=== PATIENT | male | born 1955 | race Caucasian/White ===

== ENCOUNTER 2016-10-28 07:51 | Inpatient (IN) | payer BC ==
[2016-10-28] MEDS ORDERED: Ticagrelor* 90 MG TAB PO ONE (07:54)
[2016-10-28] MEDS ORDERED: Heparin for STEMI(*) 5,000 UNITS/ML 1 ML VIAL IV ONE (07:54)
[2016-10-28] MEDS ORDERED: Iohexol 350 (CONTRAST) 200 ML MDV IV ONE ×2 (07:56→08:25)
[2016-10-28] MEDS ORDERED: Midazolam* 1 MG/ML 5 ML VIAL (5 MG) ONE (07:56)
[2016-10-28] MEDS ORDERED: Heparin 2 UNITS/ML IVPREMIX* 3,000 ML IV ONE (07:56)
[2016-10-28] MEDS ORDERED: fentaNYL* 50 MCG/ML 2 ML VIAL (100 MCG VIAL) ONE (07:56)
[2016-10-28] MEDS ORDERED: Lidocaine 1% INJ* 10 MG/ML 30 ML SDV ONE (07:57)
[2016-10-28] MEDS ORDERED: nitroGLYCERIN DRIP* 0 ML ONE (07:57)
[2016-10-28] MEDS ORDERED: Bivalirudin(*) 250 MG VIAL ONE (08:37)
[2016-10-28] MEDS ORDERED: fentaNYL* 50 MCG/ML 2 ML VIAL (100 MCG VIAL) IV PRN (09:13)
[2016-10-28] MEDS ORDERED: Ondansetron INJ* 2 MG/ML VIAL IV PRN (09:13)
[2016-10-28] MEDS ORDERED: Docusate CAP* 100 MG PO PRN (09:13)
[2016-10-28] MEDS ORDERED: Nitroglycerin TAB 0.4 MG* 0.4 MG TAB SL PRN (09:13)
[2016-10-28] MEDS ORDERED: oxyCODONE/Acetamin 5/325 MG* TAB PO PRN (09:13)
[2016-10-28] MEDS ORDERED: NS 0.9% 1000 ML* 1,000 ML IV SCH (09:15)
[2016-10-28 09:28] LABS: Hematocrit 45 % (42-52); Hemoglobin 15.1 g/dl (14.0-18.0); Mean Corpuscular HGB Conc 34 g/dl (31-36); Mean Corpuscular Hemoglobin 30 pg (27-31); Mean Corpuscular Volume 88 fL (80-94); Mean Platelet Volume 8 um3 (7.4-10.4); Red Blood Count 5.12 10^6/ul (4.0-5.4); Red Cell Distribution Width 14 % (10.5-15); White Blood Count 10.1 10^3/ul (3.5-10.8)
[2016-10-28 09:41] LABS: Albumin 4.1 g/dL (3.2-5.2); BUN/Creatinine Ratio 12.8 (8-20); Calcium 9.4 mg/dL (8.6-10.3); EGFR African American 87.9 (>60); EGFR Non-African American 68.3 (>60); Globulin 2.3 g/dL (2-4); Potassium 3.2 mmol/L (3.5-5.0); Total Bilirubin 0.7 mg/dL (0.2-1.0); Total Protein 6.4 g/dL (6.4-8.9)
[2016-10-28 09:44] LABS: Troponin I 0.01 ng/mL (<0.04)
[2016-10-28] MEDS ORDERED: Potassium Chlor TAB* 20 MEQ TAB.ER PO ONE (11:00)
[2016-10-28] MEDS: Acetaminophen TAB* 325 MG PO PRN (14:57)
[2016-10-28 15:05] LABS: Troponin I 30.09 ng/mL (<0.04)
[2016-10-28] MEDS ORDERED: Atorvastatin* 40 MG TAB PO SCH (17:00)
[2016-10-28] MEDS ORDERED: Ezetimibe TAB* 10 MG PO SCH (17:00)
[2016-10-28] MEDS: Ticagrelor* 90 MG TAB PO SCH ×2 (19:21→19:57)
--- NOTE | 2016-10-28 19:59 | HP ---
ADMISSION HISTORY AND PHYSICAL: DATE OF ADMISSION: 10/28/16 CHIEF COMPLAINT: Chest discomfort with arm heaviness and diaphoresis with ST elevation anterior wall myocardial infarction suggested on EKG with reciprocal changes. HISTORY OF PRESENT ILLNESS: The patient is a pleasant 61-year-old gentleman who was in his usual state of his health. He admits that over the past week or so, he has felt somewhat fatigued when he tried to do exertional activity and going upstairs at work did produce mild chest discomfort but not significant limiting activity. Today, he was down at the [employer] where he normally swims 3 times a week. He and his had gotten into a heated discussion with another swimmer in the pool over lu usage for swimming. Over the course of his continuing to share that lu with her, he became more and more upset watching her being harassed by the other woman. As such, he eventually felt poorly, got out of the pool and told his he just in general was not feeling well. He did try to take a shower, came out of the shower with progression of the symptoms of chest discomfort with bilateral arm heaviness and now diaphoresis. They summoned the EMS who came and on presentation, the patient had an EKG performed, which suggested the presence of an anterior wall myocardial infarction with reciprocal changes. A STEMI alert was called to [facility]. On arrival, he was met in the emergency room by myself and our label printer nurse to be able to see if we could do an ER bypass. His vital signs were stable by the EMS with the blood pressure in the 130s. He was still having significant active discomfort. I explained the risks and benefits about proceeding with issue of cardiac catheterization and he understood them and wished to go directly for cardiac catheterization. PAST MEDICAL HISTORY: Significant for the fact that he has had multiple interventions to his coronary arteries dating back as far as 1998. His last intervention; however, was more recent in [address] Leonardo Winchester (attempts were made to call Dr. Winchester prior to the procedure to get more details, but he did not answer his phone). The patient also has hyperlipidemia. CURRENT MEDICATIONS: Include: 1. Baby aspirin once a day. 2. Atorvastatin 40 mg a day. 3. Zetia 10 mg a day. 4. Ramipril 10 mg a day. 5. Metoprolol succinate 25 mg a day. 6. MultiVites. REVIEW OF SYSTEMS: Pertinent to proceeding with cardiac catheterization emergently include negative history of significant bleeding, no stroke or TIA. No history of renal dysfunction. PHYSICAL EXAMINATION GENERAL: Briefly, in the emergency room, the patient was alert, oriented. VITAL SIGNS: From the paramedics , BP was in the 130s/ systolic with the pulse in the 70s to 80s, respirations appeared to be 16 to 20. NECK: Supple. No increased JVP. LUNGS: Clear to A and P. HEART: Revealed no visible heaves, no palpable heaves or thrills. Normal S1, S2. I cannot appreciate a significant systolic or diastolic murmur. ABDOMEN: Soft, nontender. EXTREMITIES: Had femoral pulses present bilaterally. No significant bruits. Distal pulses were good. MUSCULOSKELETAL: Patient moves all extremities appropriately. DIAGNOSTIC STUDIES/LAB DATA: Review of EKG by paramedics revealed ST segment elevation in V2, subtly in V3 and also in V1 with reciprocal changes in 2, [address]. [address] segment elevation is seen in aVL and minimally in lead 1 with mild segment depression in V5 and V6. OVERALL ASSESSMENT: Mr. Negrete presents now in the throes of an acute ST segment elevation anterior wall myocardial infection. We have given him 4000 units of heparin in the emergency room on the EMS stretcher and 180 mg of Brilinta orally. He has already received aspirin therapy. Further management will be made pending results of cardiac catheterization. Aggressive continued risk factor management obviously is paramount in the postprocedure timeframe. We will notify Dr. Rodríguez Black of the patient's admission. CC: Rodríguez Black MD; Dr. Leonardo Winchester, Department of Cardiology in [place] * [id number]/[facility] #: [id number] MTDD
[2016-10-28 20:38] LABS: Troponin I 44.81 ng/mL (<0.04)
[2016-10-28] MEDS ORDERED: Zolpidem TAB* 5 MG PO PRN (21:00)
[2016-10-29] MEDS: Acetaminophen TAB* 325 MG PO PRN ×2 (00:09→09:46)
--- NOTE | 2016-10-29 01:16 | CATH ---
CARDIAC CATHETERIZATION REPORT: DATE OF PROCEDURE: 10/28/16 - ROOM #ICU-10 INDICATIONS FOR PROCEDURE: The patient with acute ST segment elevation, anterior wall myocardial infarction. PROCEDURE: Coronary arteriography, balloon angioplasty, and placement of a 3.5 x 28 mm long synergy drug-eluting stent post dilated to as much as 3.85 mm with high pressure balloon inflations, left heart catheterization, left ventriculography. DESCRIPTION OF PROCEDURE: The patient was met in the emergency room in the throes of acute ST-segment elevation anterior wall myocardial infarction. Discussion was made of the urgent need for cardiac catheterization. The patient understood this and agreed with proceeding to cardiac catheterization. He was brought to the cardiovascular laboratory in a ER bypass mode. A formal time-out was performed. The patient was prepped and draped in sterile fashion. The right groin area was anesthetized with 1% lidocaine, the right femoral artery was cannulated and a 6.5 Mozambican Merit prelude sheath was placed in the right femoral artery. Coronary arteriography was then performed utilizing a 5-Mozambican 4 curve right coronary catheter and the left coronary artery was cannulated utilizing a 6- Mozambican VL 3.5 curve guide catheter. The patient received an Angiomax bolus and Angiomax drip was started. A 0.014 AllStar wire was advanced down the left anterior descending artery and balloon angioplasty was performed to the proximal portion utilizing a 2.5 x 15 mm long Emerge balloon. Following this, a 3.5 x 28 mm long Synergy drug- eluting stent was deployed. Following this, post deployment inflations were made initially with a 3.5 x 12 mm long NC Emerge balloon dialed to as high as 25 atmospheres. More proximal post deployment dilatations were made with a 3.5. Following that, the artery was assessed with the wire in place and wire removed. Central aortic pressure was then recorded using an angled pigtail catheter advanced to the ascending aorta. The catheter was then passed across the aortic valve into the left ventricle, where left ventricular pressure was recorded. Left ventriculography was performed utilizing a total of 24 cc of Omnipaque dye at a rate of 12 cc per second. The catheter was then pulled back across the aortic valve to recheck gradient. Following this, the decision was made to go back in and perform further dilatation in the most proximal areas of the stent due to mild narrowing seen in that area within the stent. The guiding catheter was then advanced back up and the 0.014 wire was advanced down the left anterior descending artery and balloon angioplasty was performed utilizing a 3.75 x 8 mm long NC Emerge balloon to high pressure (25 atmospheres). The artery was then assessed with wire removed. Following this, an injection was made into the right femoral sheath to assess eligibility to utilize closure device. It was found to be acceptable for this and as such, a 6/7 Mozambican Mynx closure device was deployed with good hemostasis. The total contrast used was 135 cc of Omnipaque dye. The radiation exposure included 13.9 minutes of fluoro time. The air kerma radiation was 1531 milligray. The DAP radiation was 8254 microgray per meter square. RESULTS: HEMODYNAMIC DATA: Left heart catheterization - Central aortic pressure recorded at 129/79 with a mean of 101. Left ventricular pressure 126/left ventricular end diastolic pressure of 27. LEFT VENTRICULOGRAPHY: Performed in the STARR projection revealed moderate [id number] anterior wall hypokinesis as well as moderate to severe apical hypokinesis. Overall EF estimated at 40%. CORONARY ARTERIOGRAPHY: A. Left coronary artery: 1. Left main - widely patent with no obstruction seen. 2. Left anterior descending artery, totally occluded, a short distance after its origin (within stented area.) 3. Circumflex artery - Nondominant vessel supplying a thin, first, and second obtuse marginal branch with a trifurcating third obtuse marginal branch. There is a prior stent noted in the mid circumflex into the third moderate sized obtuse marginal branches, mild 25% to 30% in-stent restenosis seen. B. Right coronary artery - a dominant vessel supplying the PDA and posterior left ventricular branches, there was a 15% proximal, a 30% mid narrowing noted. INTERVENTION INTO PROXIMAL LEFT ANTERIOR DESCENDING ARTERY: Successful reconstitution of totally occluded left anterior descending artery with balloon angioplasty and placement of a 3.5 x 28 mm long synergy drug -eluting stent dilated to as much as 3.85 mm in the more proximal segment and 3.65 in the mid segment with less than 10% residual narrowing noted. MARQUES-3 flow and no dissection seen. On reconstitution of the left anterior descending artery, it was noted that the rest of the left anterior descending artery had mild luminal regularities, but no significant obstruction. The mid diagonal branch had a lateral branch after a bifurcation point, which in the most distal aspect of it, appeared to may have had a distal embolic occlusion. This was in a caliber of vessel that was under 1 mm in size. OVERALL ASSESSMENT: Successful reconstitution of totally occluded proximal left anterior descending artery with balloon angioplasty and placement of a 3.5 x 28 mm long Synergy drug-eluting stent dilated to as high as 3.85 mm proximally, 3.65 mm distal aspect of the stent. There is a possibility of a very small distal embolic occlusion of a bifurcating area of a mid diagonal branch with a caliber of less than 1 mm versus spasm to the area. Aggressive risk factor management will be pursued with respect to lipid management, blood pressure control. The patient already does not smoke and pursues exercise on a routine basis. Given these findings with the concept of the patient having had one year of Brilinta therapy with the stent placed back in 2013, I would opt for at least a minimum of 30 months of dual antiplatelet therapy with his current stent. That will be left up to Dr. Leonardo Winchester, the patient's primary java analyst, who the patient will see in followup after leaving the hospital. CC: Dr. Rodríguez Black MD; Dr. Leonardo Winchester * [id number]/[facility] #: [id number] MTDD
[2016-10-29 02:44] LABS: Troponin I 25.94 ng/mL (<0.04)
[2016-10-29 05:34] LABS: Hematocrit 43 % (42-52); Hemoglobin 14.7 g/dl (14.0-18.0); Mean Corpuscular HGB Conc 34 g/dl (31-36); Mean Corpuscular Hemoglobin 30 pg (27-31); Mean Corpuscular Volume 89 fL (80-94); Mean Platelet Volume 8 um3 (7.4-10.4); Red Blood Count 4.91 10^6/ul (4.0-5.4); Red Cell Distribution Width 14 % (10.5-15); White Blood Count 13.3 10^3/ul (3.5-10.8)
[2016-10-29 05:54] LABS: Albumin 3.9 g/dL (3.2-5.2); BUN/Creatinine Ratio 11.8 (8-20); Calcium 9.2 mg/dL (8.6-10.3); EGFR African American 117.1 (>60); Globulin 2.3 g/dL (2-4); Total Bilirubin 0.9 mg/dL (0.2-1.0); Total Protein 6.2 g/dL (6.4-8.9)
[2016-10-29] MEDS: Ezetimibe TAB* 10 MG PO SCH (09:44)
[2016-10-29] MEDS: Metoprolol Succinate XL TAB* 25 MG PO SCH (09:44)
[2016-10-29] MEDS: Atorvastatin* 40 MG TAB PO SCH (09:44)
[2016-10-29] MEDS: Ramipril CAP* 10 MG PO SCH (09:44)
[2016-10-29] MEDS: Aspirin Low Dose CHEW TAB* 81 MG PO SCH (09:44)
[2016-10-29] MEDS: Ticagrelor* 90 MG TAB PO SCH ×2 (09:45→20:53)
--- NOTE | 2016-10-29 11:34 | ECHO ---
Patient: JARVIS BARRIENTOS Rec#: [id number] : 1955 Date: 10/29/2016 Age: 61y Height: 168 cm / 66.1 in Weight: 82 kg / 180.7 lbs Sex: M BSA: 1.92 Room#: [facility] Admit Date#: 10/28/2016 Type: Inpatient Referring: Molina Campbell MD Reading: Molina Campbell MD Consumer Marketing Analyst: John Gonzalez RDCS Transthoracic Echocardiogram Indication: S/P PCI BP: 137/82 HR: 62 Rhythm: NSR Findings History: HLD,HTN,MULTIPLE INTERVENTION Technical Comments: The study quality is fair. Left Ventricle: The left ventricular chamber size is normal. Mild concentric left ventricular hypertrophy is observed. There is a prominent septal knuckle. There is a focal wall motion abnormality present.There is severe hypokinesis of the mid to distal anterior wall with severe hypo to akinesis of the anteroapical region. The upper interventricular septum is akinteic and appears thinner than other regions. There is moderately decreased left ventricular systolic function.LVEF appears 35 to 40 % (perhaps closer to 40% in certain views) Left Atrium: The left atrial chamber size is normal. Right Ventricle: The right ventricular cavity size is normal. The right ventricular global systolic function is normal. Right Atrium: The right atrial cavity size is normal. Aortic Valve: The aortic valve is trileaflet. The aortic valve leaflets are mildly thickened. There is mild aortic regurgitation. There is no evidence of aortic stenosis. Mitral Valve: The mitral valve leaflets appear normal. There is mild mitral regurgitation. There is no evidence of mitral stenosis. Tricuspid Valve: The tricuspid valve appears normal in structure and function. There is no evidence of tricuspid valve regurgitation. Pulmonic Valve: The pulmonic valve structure is not well visualized. Pericardium: There is no pericardial effusion. Aorta: There is no dilatation of the ascending aorta. There is no dilatation of the aortic arch. Pulmonary Artery: The main pulmonary artery is not well visualized. Venous: The inferior vena cava appears normal in size. There is a greater than 50% respiratory change in the inferior vena cava dimension. Conclusions Mild concentric left ventricular hypertrophy is observed. There is a focal wall motion abnormality present.There is severe hypokinesis of the mid to distal anterior wall with severe hypo to akinesis of the anteroapical region. The upper interventricular septum is akinteic and appears thinner than other regions. There is moderately decreased left ventricular systolic function. LVEF appears 35 to 40 % (perhaps closer to 40% in certain views) There is mild aortic regurgitation. There is mild mitral regurgitation. No reports of prior studies are available for comparison. Measurements Name Value Normal Range RVIDd (AP) 2D 2 cm (0.9 - 2.6) RVDdMajor (2D) 1.8 cm (2.2 - 4.4) RAd ISD 4CH 5.2 cm (3.4 - 4.9) RA (A4C)W 2.9 cm (2.9 - 4.6) IVSd (2D) 1.3 cm (0.6 - 1) LVPWd (2D) 1.2 cm (0.6 - 1) LVIDd (2D) 4.8 cm (3.6 - 5.4) LVIDs (2D) 3.4 cm - LV FS (2D) 27 % (25 - 45) Aortic Annulus 2.1 cm (1.4 - 2.6) Ao root diameter (2D) 3.2 cm (2.1 - 3.5) Ascending Ao 3.7 cm (2.1 - 3.4) Aortic arch 2.5 cm (1.8 - 3.4) LA dimension (AP) 2D 3 cm (2.3 - 3.8) LAd ISD 4CH 4.5 cm (2.9 - 5.3) LA ISD 4CH W 3.1 cm (2.5 - 4.5) Name Value Normal Range LA ESV SP 4CH (A/L) 32.07 ml - LA ESV SP 2CH (A/L) 36.75 ml - LA ESV BP (A/L) 36.43 ml - LA ESV SP 4CH (MOD) 30.07 ml - LA ESV SP 2CH (MOD) 34.7 ml - Name Value Normal Range MV E-wave Vmax 0.63 m/sec - MV deceleration time 118 msec - MV A-wave Vmax 0.55 m/sec - MV E:A ratio 1.14 ratio - LV septal e' Vmax 0.07 m/sec - LV lateral e' Vmax 0.07 m/sec - LV E:e' septal ratio 9 ratio - LV E:e' lateral ratio 9 ratio - Name Value Normal Range AV VTI 22.93 cm - LVOT diameter 2.18 cm - LVOT Vmax 1.1 m/sec - LVOT VTI 20.33 cm - LVOT peak gradient 4.86 mmHg - LVOT mean gradient 3.22 mmHg - Name Value Normal Range IVC diameter 1.78 cm - Name Value Normal Range PV Vmax 0.9 m/sec -
[2016-10-30] MEDS: Ticagrelor* 90 MG TAB PO SCH ×2 (07:56→20:27)
[2016-10-30] MEDS: Metoprolol Succinate XL TAB* 25 MG PO SCH (07:56)
[2016-10-30] MEDS: Ezetimibe TAB* 10 MG PO SCH (07:56)
[2016-10-30] MEDS: Ramipril CAP* 10 MG PO SCH (07:56)
[2016-10-30] MEDS: Aspirin Low Dose CHEW TAB* 81 MG PO SCH (07:56)
[2016-10-30] MEDS: Atorvastatin* 40 MG TAB PO SCH (07:56)
--- NOTE | 2016-10-31 01:41 | CATH ---
CC: Dr. Rodríguez Black; Dr. Leonardo Winchester * CARDIAC CATHETERIZATION REPORT: DATE OF PROCEDURE: 10/28/16 ADDENDUM: CORONARY ARTERIOGRAPHY: Right coronary artery - in reviewing the cardiac catheterization films and the previous report, there was felt to be mentioned a 55% to 60% lesion seen in the proximal portion of the posterior descending artery. [id number]/[facility] #: [id number] MTDD
[2016-10-31] MEDS: Metoprolol Succinate XL TAB* 25 MG PO SCH (09:40)
[2016-10-31] MEDS: Ramipril CAP* 10 MG PO SCH (09:41)
[2016-10-31] MEDS: Ticagrelor* 90 MG TAB PO SCH (09:41)
[2016-10-31] MEDS: Aspirin Low Dose CHEW TAB* 81 MG PO SCH (09:41)
[2016-10-31] MEDS: Ezetimibe TAB* 10 MG PO SCH (09:41)
[2016-10-31] MEDS: Atorvastatin* 40 MG TAB PO SCH (09:42)
[2016-10-31 10:14] VITALS: BP 120/87
--- NOTE | 2016-11-01 00:59 | DS ---
DISCHARGE SUMMARY: * ADDENDUM: DISCHARGE MEDICATIONS: Medications at the time of discharge included: 1. Atorvastatin 40 mg a day. 2. Zetia 10 mg a day. 3. Metoprolol succinate 25 mg a day. 4. Sublingual nitroglycerin as needed. 5. Ramipril 10 mg a day. 6. Ticagrelor 90 mg twice a day. 7. Baby aspirin 81 mg a day. [id number]/[facility] #: [id number] [facility]
--- NOTE | 2016-11-01 01:16 | DS ---
ADDENDUM NOW INCLUDED ON THIS REPORT DISCHARGE SUMMARY: DATE OF ADMISSION: 10/28/16 DATE OF DISCHARGE: 10/31/16 FINAL DIAGNOSIS: Acute ST-segment elevation anterior wall myocardial infarction. SECONDARY DIAGNOSIS: 1. History of coronary artery disease. 2. Hyperlipidemia. HISTORY: The patient is a pleasant 61-year-old gentleman who was admitted in the throes of an acute anterior wall myocardial infarction on 10/28/16. Please refer to the H and P for complete details. HOSPITAL COURSE: He went emergently to the cardiovascular laboratory for cardiac intervention. Cardiac catheterization revealed the presence of a totally occluded proximal LAD of short distance from the left main. He underwent successful balloon angioplasty and placement of a 3.5 x 28 mm long Synergy drug-eluting stent dilated to 3.85 mm proximally and 3.65 distally. He also was noted to have a mild disease in the proximal right coronary artery and the circumflex with a moderate lesion in the proximal portion of the posterior descending artery felt to be as much as 55% to 60%. During the hospital course, he underwent a transthoracic echocardiogram on 10/29 suggesting a left ventricular focal wall motion abnormality involving the mid to distal anterior wall upper septum area. The EF noted to be approximately 35% to 40%, perhaps closer to 40% in certain views. He had no significant valvular disease, but only mild aortic and mitral regurgitation. He was up and about walking without significant symptoms and eventually discharged home on 10/31/16. On the day of discharge, the patient was stable. PHYSICAL EXAMINATION: Vital signs: Blood pressure of 111/71 with a pulse of 61 , respirations 16, O2 saturation 97% on room air. Afebrile at 98.1. Neck was supple with no increased JVP. Carotids without bruits. Conjunctivae were pink. Sclerae clear. Mouth revealed moist mucosa. Lungs revealed no accessory muscle usage with good excursion. Lungs were clear to A and P. Heart revealed no visible heaves. No palpable heaves or thrills. Normal S1, S2 with no S3, S4 gallop. No significant systolic or diastolic murmur. Abdomen was soft, nontender. Extremities without clubbing, cyanosis, or damian pitting edema. Right femoral area was well healed with no bruits or hematoma. Good pulse noted. Neuro: The patient was alert and oriented with normal mentation. Musculoskeletal: The patient was walking with normal gait. Psychiatric: The patient with normal affect. Electrocardiogram on the day of discharge showed Q waves in V1 with minimal R wave in V2 and V3 with minimal residual ST segment elevation in V1 and V2 with T-wave inversion in V1 through V4 as well as mildly in leads I and more deeply in aVL. The patient received a cardiac education booklet in addition to his stent card. All questions from him and his were answered to their satisfaction. He has a scheduled appointment to follow up with Dr. Julian Winchester, his primary cake icer, within the next 2 week's time. ADDENDUM: DISCHARGE MEDICATIONS: Medications at the time of discharge included: 1. Atorvastatin 40 mg a day. 2. Zetia 10 mg a day. 3. Metoprolol succinate 25 mg a day. 4. Sublingual nitroglycerin as needed. 5. Ramipril 10 mg a day. 6. Ticagrelor 90 mg twice a day. 7. Baby aspirin 81 mg a day. CC: Dr. Leonardo Winchester; Dr. Rodríguez Black * [id number]/[facility] #: [id number] A- [id number]/[facility] #: [id number] MTDSherlyn
== END 2016-10-31 11:35 | disposition home or self-care (01) | DRG 174 ==
LOC: ED 07:51 → ICU 09:09 → MEDTELE 10-29 19:48
PROVIDERS: ADMIT Internal Medicine Cardiovascular Disease; ATTEND Internal Medicine Cardiovascular Disease
PROC: B2111ZZ Fluoroscopy of Multiple Coronary Arteries using Low Osmolar Contrast (ICD-10-PCS; 2016-10-28)
PROC: B2151ZZ Fluoroscopy of Left Heart using Low Osmolar Contrast (ICD-10-PCS; 2016-10-28)
PROC: 027034Z Dilation of Coronary Artery, One Artery with Drug-eluting Intraluminal Device, Percutaneous Approach (ICD-10-PCS; 2016-10-28)
PROC: 4A023N7 Measurement of Cardiac Sampling and Pressure, Left Heart, Percutaneous Approach (ICD-10-PCS; principal; 2016-10-28 08:00)
DX: I21.09 ST elevation (STEMI) myocardial infarction involving other coronary artery of anterior wall (principal); I08.0 Rheumatic disorders of both mitral and aortic valves; I25.10 Atherosclerotic heart disease of native coronary artery without angina pectoris; E78.5 Hyperlipidemia, unspecified; Z79.82 Long term (current) use of aspirin
CPT/HCPCS: 36415; 80053; 80061; 82550; 82553; 83721; 83874; 83880; 84484; 85025; 85027; 85610; 85730; 86850; 86900; 86901; 87641; 93005; 93306; A9270-GY; C1725; C1760; C1769; C1876; C1887; C9606-LD; J0583; J1644; J2250; J3010

== ENCOUNTER 2017-02-19 11:25 | Emergency (ER) | payer BC ==
[2017-02-19 11:30] VITALS: BP 114/72
[2017-02-19] MEDS ORDERED: Tetan/Diph/Pertus SYR(Tdap)* 0.5 ML SYR(BOOSTRIX) use SYR IM ONE (12:50)
--- NOTE | 2017-02-19 14:00 | UC ---
Lower Extremity/Ankle HPI - HPI Summary HPI Summary: While working outside this morning pt stepped on vidal nail through R shoe into R heel. Did not have any difficulty removing nail from skin or foot, though said it was difficult to get it out of his shoe. Walking comfortably, does not have FB sensation, nail looked intact when he pulled it out. - History of Current Complaint Chief Complaint: UCWounds Stated Complaint: PUNCTURE WOUND TO FOOT Time Seen by Provider: 02/19/17 13:40 Hx Obtained From: Patient Onset/Duration: Sudden Onset Severity Initially: Mild Severity Currently: Mild Aggravating Factor(s): Standing, Ambulation Alleviating Factor(s): Rest Able to Bear Weight: Yes - Allergies/Home Medications Allergies/Adverse Reactions: Allergies Allergy/AdvReac Type Severity Reaction Status Date / Time No Known Allergies Allergy Verified 02/19/17 11:30 PMH/Surg Hx/FS Hx/Imm Hx Cardiovascular History: Cardiac Disease, Hypertension - Surgical History Surgical History: Yes Surgery Procedure, Year, and Place: CSP FUSION 2009. CARDIAC STENTS - [2] CORDIS VELOSITY - 07/13/01; ACS MULTILINK RX DUET 07/08/99; MULTILINK TETRA - ALL CONDITIONAL UP TO 3T - SCANNED INTO PT'S EMR - Family History Known Family History: Positive: Hypertension - Social History Alcohol Use: Occasionally Substance Use Type: None Smoking Status (MU): Never Smoked Tobacco - Immunization History Most Recent Influenza Vaccination: 06/27 Most Recent Tetanus Shot: 2013 Most Recent Pneumonia Vaccination: never Review of Systems Constitutional: Negative Skin: Other - PW R foot Eyes: Negative ENT: Negative Respiratory: Negative Cardiovascular: Negative Gastrointestinal: Negative Genitourinary: Negative Motor: Negative Neurovascular: Negative Musculoskeletal: Negative Neurological: Negative Psychological: Negative All Other Systems Reviewed And Are Negative: Yes Physical Exam Triage Information Reviewed: Yes Appearance: Well-Appearing, No Pain Distress, Well-Nourished Vital Signs: Initial Vital Signs Temp 98.0 F 02/19/17 11:27 Pulse 61 02/19/17 11:27 Resp 16 02/19/17 11:27 BP 114/72 02/19/17 11:27 Pulse Ox 99 02/19/17 11:27 Vital Signs Reviewed: Yes Eye Exam: Normal Eyes: Positive: Conjunctiva Clear ENT Exam: Normal ENT: Positive: Normal ENT inspection, Hearing grossly normal, Pharynx normal, TMs normal Dental Exam: Normal Neck exam: Normal Neck: Positive: Supple, Nontender, No Lymphadenopathy Respiratory Exam: Normal Respiratory: Positive: Chest non-tender, Lungs clear, Normal breath sounds, No respiratory distress, No accessory muscle use Cardiovascular Exam: Normal Cardiovascular: Positive: RRR, No Murmur Musculoskeletal Exam: Normal Musculoskeletal: Positive: ROM Intact Neurological Exam: Normal Neurological: Positive: Alert Psychological Exam: Other - PW to R heel unremarkable, no erythema, drainage, or FB noted Lower Extremity Course/Dx - Differential Dx/Diagnosis Provider Diagnoses: R heel PW with nail through shoe Discharge - Discharge Plan Condition: Stable Disposition: HOME Prescriptions: Ciprofloxacin TAB* [Cipro 500 MG TAB*] 500 mg PO BID #6 tab Patient Education Materials: Puncture Wound (ED) Referrals: Rodríguez Black MD [Primary Care Provider] - Additional Instructions: Do warm soapy soaks for 30 minutes at a time 4 times per day and elevate as much as possible. While you will likely be fairly sore tomorrow, you should come back if you do not see clear improvement after 48 hours or so. Come back sooner if you suspect a problem at any time.
== END 2017-02-19 13:58 | disposition home or self-care (01) ==
LOC: UCEAST 11:25
DX: S91.331A Puncture wound without foreign body, right foot, initial encounter (principal); W22.8XXA Striking against or struck by other objects, initial encounter; Y93.9 Activity, unspecified; Y92.9 Unspecified place or not applicable; Y99.9 Unspecified external cause status; I10 Essential (primary) hypertension; I51.9 Heart disease, unspecified
CPT/HCPCS: 90471; 90715; 99212; G0463